=== PATIENT | male | born 1985 ===

== ENCOUNTER 2020-08-03 08:35 | Outpatient (CLI) | payer BC ==
[2020-08-03 15:49] LABS: #Basophils 0.1 10x3/uL (0.0-0.2); #Eosinphils 0.4 10x3/uL (0.0-0.5); #Monocytes 0.7 10x3/uL (0.0-1.1); #Neutrophils 4.1 10x3/uL (1.5-8.4); %Basophils 0.9 % (0.0-2.0); %Eosinophils 5.7 % (0.0-6.0); %Lymphocytes 23.3 % (18.0-47.0); %Monocytes 9.5 % (0.0-10.0); %Neutrophils 60.3 % (40.0-75.0); Hemoglobin 13.3 g/dL (14.0-18.0); Mean Corpuscular HGB CONC 34.5 G/DL (32.0-36.0); Mean Corpuscular Hemoglobin 32.8 PG (27.0-33.0); Mean Corpuscular Volume 94.8 fl (80.0-100.0); Mean Platelet Volume 10.7 fl (7.4-10.4); Platelet Count 181 10x3/uL (130-400); RBC Distribution Width 12.2 % (11.5-14.5); Red Blood Cell (RBC) Count 4.06 10x6/uL (4.40-5.80); White Blood Cell (WBC) Count 6.8 10x3/uL (4.5-11.0)
[2020-08-03 16:02] LABS: Anion Gap 14 mmol/L (10-20); BUN (Urea Nitrogen) 11 mg/dL (8.9-20.6); Calc. Creatinine Clearance 0 mL/min (70-130); Calcium 9.1 mg/dL (7.8-10.44); Carbon Dioxide 27 mmol/L (22-29); Chloride 105 mmol/L (98-107); Glucose 104 mg/dL (70-105); Potassium 4.6 mmol/L (3.5-5.1); Sodium 141 mmol/L (136-145)
== END 2020-08-03 08:36 | disposition home or self-care (01) ==
LOC: LABBT 08:35
PROVIDERS: ATTEND Surgery
DX: Z01.818 Encounter for other preprocedural examination (principal); K40.90 Unilateral inguinal hernia, without obstruction or gangrene, not specified as recurrent; Z20.822 Contact with and (suspected) exposure to COVID-19
CPT/HCPCS: 80048; 93005; 93010

== ENCOUNTER 2020-08-16 06:10 | Day surgery (SDC) | payer BC ==
[2020-08-14 14:37] VITALS: BMI 26.5
[2020-08-16] MEDS ORDERED: XYLOCAINE 2%-EPI 1:100,000 20 ML VIAL ONE (06:34)
[2020-08-16] MEDS ORDERED: Bupivacaine 0.25% HCL 30 ML VIAL ONE (06:34)
[2020-08-16] MEDS ORDERED: Fentanyl 250 MCG/5 ML VIAL ONE (06:52)
--- NOTE | 2020-08-16 08:42 | HP ---
CHIEF COMPLAINT: Left inguinal hernia. HISTORY: The patient is a 35-year-old male who had had a previous inguinal hernia repair done at age 16, who developed recurrent intermittent bulging of the left groin. He also has some intermittent pain in the left upper quadrant of the abdomen as well, and he thought he might have some symptoms on the right. PAST MEDICAL HISTORY: Depression, anxiety, squamous cell carcinoma, back pain, and decreased hearing. PAST SURGICAL HISTORY: Includes the inguinal hernia repair at age 16, LASIK surgery bilateral, and umbilical hernia. MEDICATIONS: None. ALLERGIES: NO KNOWN DRUG ALLERGIES. FAMILY HISTORY: Father alive with skin cancer, depression and cancer. Mother alive with depression, hypertension. SOCIAL HISTORY: He is . Uses oral tobacco. Occasional beers. PHYSICAL EXAMINATION: VITAL SIGNS: Height 73.5, weight 200, body mass index 26. His temperature is 98.2. GENERAL: Well-developed, well-nourished male, in no apparent distress. HEENT: Unremarkable. LUNGS: Clear. HEART: Regular rate and rhythm. ABDOMEN: Soft, nondistended, nontender. No palpable hernias there. He has a reducible left inguinal hernia. I do not feel a right inguinal hernia. EXTREMITIES: Good pulses. No pedal edema. ASSESSMENT: Left inguinal hernia with possible recurrent right inguinal hernia. PLAN: Laparoscopic robotic-assisted inguinal hernia repair with mesh. CONSENT: I have discussed the planned procedure as well as risk of bleeding, infection, injury to bowel and bladder, need to open. He understands and gives informed consent. Job ID: [id number]
[2020-08-16] MEDS ORDERED: Fentanyl 100 MCG/2 ML VIAL ONE ×2 (09:30→09:56)
--- NOTE | 2020-08-16 10:10 | OP ---
DATE OF PROCEDURE: 08/16/2020 PREOPERATIVE DIAGNOSIS: Possible bilateral inguinal hernia. PROCEDURE PERFORMED: Laparoscopic robotic assisted right inguinal hernia repair with mesh. INDICATIONS: The patient is a 35-year-old male, who has been having bilateral inguinal bulging and pain. I thought he had a left inguinal hernia on exam. He has also been having some left upper quadrant abdominal pain and bulging there as well. FINDINGS: In his upper abdomen, the abdominal wall was free of hernias. The spleen was visualized. There was no evidence of injury to it from previous trauma down in the groin. On the left side, no hernia seen. On the right, there was a definite right inguinal hernia. DESCRIPTION OF PROCEDURE: After informed consent was obtained, the patient was taken to the operating room, given general endotracheal anesthesia, placed in the supine position. Abdomen was prepped and draped in usual fashion. Local anesthesia was infiltrated subcutaneously and deep, and an upper midline incision was performed just above the umbilicus. Subcu divided sharply. The fascia was grasped and incised. Digital palpation revealed no local adhesions. A blunt 12 mm trocar was inserted. Pneumoperitoneum was created to a pressure of 15 mmHg. The 30-degree laparoscope was inserted, and under direct vision, two 8 mm ports were placed just lateral to the rectus bilateral. Then, the patient was placed in reverse Trendelenburg position to inspect the anterior abdominal wall as well as the left upper abdomen, where he was complaining of pain and swelling. The spleen was inspected as he had recent trauma. There was no evidence of injury there. The abdominal wall was inspected. There was no evidence of hernias or mass. Then, the patient was placed in Trendelenburg position, and the pelvis was inspected, retracted all the bowel, and I could not find a left inguinal hernia at all. On the right, there was a definite hernia. So, the robot was docked and I went to the console. Then, the peritoneum was opened from median umbilical ligament laterally. A subperitoneal plane was developed using blunt and sharp dissection. The pubic tubercle was dissected out. A lipoma of the cord/inguinal hernia was found. This was dissected out and reduced. It was a very large lipoma of the cord. Then, a large contour mesh was inserted. It was sutured to the pubic tubercle with a 2-0 silk suture, tied intracorporeally and to the anterior abdominal wall just medial to the epigastric vessels with a 2-0 silk suture tied intracorporeally. Hemostasis was assured. The peritoneum was closed with a running 3-0 PDS V-Loc from lateral to medial. Hemostasis assured and all needles were retrieved. Trocars and retractors were removed. The fascia was closed with interrupted 0 Vicryl suture. Skin was closed with interrupted 4-0 Monocryl. Dermabond was applied. The patient tolerated the procedure well, transferred to Recovery in good condition. Sponge and needle count were verified correct x2. Job ID: [id number]
[2020-08-16] MEDS ORDERED: HYDROcodone/Acetaminophen 5/325 mg Tablet ONE (10:52)
[2020-08-16] MEDS ORDERED: Glycopyrrolate 0.2 MG/ML 5 ML SYRINGE ONE (13:16)
[2020-08-16] MEDS ORDERED: Ketorolac Tromethamine 30 MG/ML VIAL ONE (13:16)
[2020-08-16] MEDS ORDERED: PROPOFOL 200 MG/20 ML VIAL ONE (13:16)
[2020-08-16] MEDS ORDERED: Dexamethasone 20 MG/5 ML VIAL ONE (13:16)
[2020-08-16] MEDS ORDERED: Lidocaine 1% PF 5 ML VIAL ONE (13:16)
[2020-08-16] MEDS ORDERED: PHENYLEPHRINE-NS 100 MCG/ML 10 ML SYRINGE ONE (13:16)
[2020-08-16] MEDS ORDERED: Ondansetron PF 4 MG/2 ML Vial ONE (13:16)
[2020-08-16] MEDS ORDERED: Rocuronium Bromide 10 MG/ML (10ML VIAL) ONE (13:16)
== END 2020-08-16 12:30 | disposition home or self-care (01) ==
LOC: SDC 06:10
PROVIDERS: ATTEND Surgery
PROC: 0YU54JZ Supplement Right Inguinal Region with Synthetic Substitute, Percutaneous Endoscopic Approach (ICD-10-PCS; principal; 2020-08-16)
DX: K40.90 Unilateral inguinal hernia, without obstruction or gangrene, not specified as recurrent (principal); D17.6 Benign lipomatous neoplasm of spermatic cord; I10 Essential (primary) hypertension; F17.220 Nicotine dependence, chewing tobacco, uncomplicated; F31.9 Bipolar disorder, unspecified; F41.9 Anxiety disorder, unspecified; Z79.899 Other long term (current) drug therapy
CPT/HCPCS: C1781; J0690; J1100; J1885; J2405; J2704; J3010; S0020